=== PATIENT | female | born 1985 | race Caucasian/White ===

== ENCOUNTER → 2016-05-15 | Outpatient (CLI) | payer MEDICAID ==
--- NOTE | 2016-05-15 18:03 | MR ---
EXAMINATION TYPE: MR brain wo con DATE OF EXAM: 05/15/2016 5:31 PM COMPARISON: 04/27/2015 HISTORY: Hemangioma follow-up Multiplanar and multispin-echo imaging of the brain was performed . The ventricles, basal cisterns and sulci overlying the cerebral convexities are within normal limits. There is no evidence for midline shift or mass effect. Acute intracranial hemorrhage or extra-axial collection is not evident. The brain parenchyma reveals no abnormal increased signal. No acute edema is identified. The paranasal sinuses and mastoid air cells are well-aerated. Left frontal calvarium again demonstrates a stable hemangioma measuring 2.6 x 1.6 x 1.0 cm versus 2.6 x 1.6 x 1.0 cm previously. Again noted is some slight expansion. Thinning of the inner table of the cortex again seen. Overall no change identified. IMPRESSION: 1. Stable probable left frontal calvarial hemangioma. 2. No additional intracranial abnormality identified.
== END | disposition home or self-care (01) ==
LOC: RADMRIMAIN 16:45
PROVIDERS: ATTEND Nurse Practitioner Adult Health
DX: D18.00 Hemangioma unspecified site (principal)
CPT/HCPCS: 70551

== ENCOUNTER → 2017-05-07 | Outpatient (CLI) | payer MEDICAID ==
--- NOTE | 2017-05-07 21:44 | MR ---
EXAMINATION TYPE: MR brain wo con DATE OF EXAM: 05/07/2017 COMPARISON: 05/15/2016, 04/27/2015 and 05/07/2014. HISTORY: Follow up from previous MRI TECHNIQUE: Multiplanar, multisequence images of the brain and brainstem is performed without intravenous contras t. FINDINGS: Diffusion weighted images demonstrate no evidence of a recent infarct or other diffusion ab normality. There is no extra-axial fluid collection or significant white matter signal abnormality. The ventricular system and cisternal spaces are normal in size and appearance. The brain volume is age appropriate. Major intracranial flow voids are maintained in the left vertebral artery is dominan t. Midline structures demonstrate normal morphology. The craniocervical junction appears within normal limits. Post contrast images demonstrate no abnormal enhancement. The dural venous sinuses appear pa tent. A 1.5 cm left maxillary mucosal retention cyst is seen. The remaining visualized sinuses are cl ear and the globes are intact. Expanding the diploic space within the left frontal bone there is a T1 hyperintense and T2 hyperinten se lesion measuring 2.6 x 1.6 x 1.0, unchanged from the prior where this also measured 2.6 x 1.6 x 1. 0. No adjacent dural reaction. Minimal thickening in the inner table is redemonstrated and unchanged from the priors. IMPRESSION: Stable left lesion within the left diploic space unchanged in dimensions dating back to favored to represent a benign hemangioma. No new findings.
== END | disposition home or self-care (01) ==
LOC: RADMRIMAIN 19:09
PROVIDERS: ATTEND Family Medicine
DX: G93.9 Disorder of brain, unspecified (principal)
CPT/HCPCS: 70551

== ENCOUNTER → 2018-04-09 | Outpatient (CLI) | payer MEDICAID ==
--- NOTE | 2018-04-09 11:28 | CT ---
EXAMINATION TYPE: CT abdomen pelvis wo con DATE OF EXAM: 04/09/2018 COMPARISON: 11/22/2015 HISTORY: Abdominal pain and pelvic pain. History of hysterectomy and cholecystectomy. CT DLP: 578 mGycm Automated exposure control for dose reduction was used. TECHNIQUE: Helical acquisition of images was performed from the lung bases through the pelvis. FINDINGS: Evaluation of the hollow and solid viscera are limited without contrast. LUNG BASES: No significant abnormality is appreciated. LIVER/GB: Gallbladder surgically absent. Unenhanced liver is of unremarkable morphology. PANCREAS: No ductal dilatation is evident. SPLEEN: No significant abnormality is seen. ADRENALS: No nodularity or thickening. KIDNEYS: No nephrolithiasis or hydronephrosis. Left extrarenal pelvis is incidentally noted. FREE AIR: No free air is visualized ADENOPATHY: No greater than 1 cm short axis lymph node is seen given the limitation of the lack of i ntravenous contrast. REPRODUCTIVE ORGANS: Suboptimally evaluated on CT. There is surgical absence of the uterus. Vaginal c uff prominence is noted. There appears to be follicular and/or cystic changes of the ovaries, right g reater than left. Right ovary measures up to 4.5 cm in craniocaudal dimension. URINARY BLADDER: Incompletely distended. OSSEOUS STRUCTURES: Punctate nonspecific right pubic bone possible bone island is present. This is u nchanged from 2016. BOWEL: There is pancolonic bowel wall thickening most pronounced of the transverse colon such as on series 3 image 38 with mild pericolonic fat stranding. Few surrounding prominent mesenteric lymph nod es are seen that are not greater than 1 cm. Appendix appears within normal limits of size and retroce leonardo. No dilated large or small bowel. Evaluation for abscess is limited without contrast however no g ross evidence of pericolonic fluid collection is seen. IMPRESSION: 1. MILD ACUTE PANCOLITIS WITHOUT OBSTRUCTIVE PROCESS. COLITIS MAY BE OF INFECTIOUS OR INFLAMMATORY ET IOLOGY. GIVEN THE DIFFUSE INVOLVEMENT C. DIFFICILE COULD BE CONSIDERED. FEW NONENLARGED BUT PROMINENT LIKELY REACTIVE LYMPH NODES ARE SCATTERED THROUGHOUT THE MESENTERY. 2. PROMINENCE OF THE VAGINAL CUFF MAY BE POSTSURGICAL BUT SHOULD BE CORRELATED WITH PHYSICAL EXAM. AD DITIONALLY FOLLICULAR CHANGES AND/OR CYSTIC CHANGES ARE SEEN OF THE OVARIES, RIGHT GREATER THAN LEFT FOR WHICH PELVIC ULTRASOUND IS RECOMMENDED FOR BETTER CHARACTERIZATION.
== END | disposition home or self-care (01) ==
LOC: RADCTMAIN 10:52
PROVIDERS: ATTEND Nurse Practitioner Adult Health
DX: K52.9 Noninfective gastroenteritis and colitis, unspecified (principal); N83.202 Unspecified ovarian cyst, left side; N83.201 Unspecified ovarian cyst, right side
CPT/HCPCS: 74176

== ENCOUNTER → 2018-06-27 | Outpatient (CLI) | payer MEDICAID ==
--- NOTE | 2018-06-27 13:22 | MR ---
EXAMINATION TYPE: MR brain wo con DATE OF EXAM: 06/27/2018 1:15 PM COMPARISON: 05/07/2017 HISTORY: Benign neoplasm of brain, unspecified Multiplanar and multispin-echo imaging of the brain was performed . The ventricles, basal cisterns and sulci overlying the cerebral convexities are within normal limits. There is no evidence for midline shift or mass effect. Acute intracranial hemorrhage or extra-axial collection is not evident. The brain parenchyma reveals no abnormal increased signal. No acute edema is identified. Again noted within the diploic space of the left frontal bone there is a lesion that T1 hyperintensit y and T2 hyperintensity as well which measures approximately 2.6 x 1.3 x 4.0 cm versus 2.6 x 1.6 x 1. 0 cm previously. This is felt to reflect benign hemangioma. The paranasal sinuses and mastoid air cells are well-aerated. IMPRESSION: 1. Stable probable hemangioma of the left frontal bone diploic space.
== END | disposition home or self-care (01) ==
LOC: RADMRIMAIN 12:40
PROVIDERS: ATTEND Family Medicine
DX: D33.2 Benign neoplasm of brain, unspecified (principal)
CPT/HCPCS: 70551

== ENCOUNTER → 2018-07-16 | Outpatient (CLI) | payer MEDICAID ==
--- NOTE | 2018-07-16 08:21 | MM ---
Reason for exam: clinical finding. History: Family history of breast cancer in paternal aunt at age 18. US discontinued breast bx LT of the left breast, August 03, 2015. Took hormonal contraceptives for 7 years beginning at age 16. Physical Findings: Nurse Summary: 1cm nodule in the left breast at 9 o'clock (nurse darin). MG 3D Diag Mammo W/Cad ARIEL Bilateral CC and MLO view(s) were taken. The breast tissue is heterogeneously dense. This may lower the sensitivity of mammography. No suspicious calcifications are seen. There is no discrete abnormality including area of concern. These results were verbally communicated with the patient and result sheet given to the patient on 07/16/18. ASSESSMENT: Incomplete: need additional imaging evaluation, BI-RAD 0 RECOMMENDATION: Ultrasound of the left breast.
--- NOTE | 2018-07-16 08:22 | USB ---
Reason for exam: additional evaluation requested from abnormal screening. History: Family history of breast cancer in paternal aunt at age 18. US discontinued breast bx LT of the left breast, August 03, 2015. Took hormonal contraceptives for 7 years beginning at age 16. US Breast Limited LT Left limited breast ultrasound including focal area of concern, retroareolar and axilla demonstrates a 1.7 x 1.2 x 0.5cm hyperechoic lesion at 7 o'clock, lipoma versus dense tissue. These results were verbally communicated with the patient and result sheet given to the patient on 07/16/18. ASSESSMENT: Benign, BI-RAD 2 RECOMMENDATION: Ultrasound of the left breast in 6 months. Manage patient on a clinical basis.
== END ==
LOC: RADMAMWWP 06:59
PROVIDERS: ATTEND Family Medicine
DX: N63.10 Unspecified lump in the right breast, unspecified quadrant (principal); N63.20 Unspecified lump in the left breast, unspecified quadrant; R92.8 Other abnormal and inconclusive findings on diagnostic imaging of breast
CPT/HCPCS: 77062; 77066

== ENCOUNTER → 2018-10-09 | Outpatient (CLI) | payer MEDICAID ==
--- NOTE | 2018-10-09 14:50 | CT ---
EXAMINATION TYPE: CT brain wo con DATE OF EXAM: 10/09/2018 COMPARISON: CT brain May 10, 2014 HISTORY: Pre-surgical for hemangioma. Prior abnormal CT. CT DLP: 980.6 mGycm. Automated Exposure Control for Dose Reduction was Utilized. TECHNIQUE: CT scan of the head is performed without contrast. FINDINGS: There is no acute intracranial hemorrhage, mass effect, or midline shift identified. The ventricles and sulci are within normal limits in size. The globes are intact and the visualized sin uses are clear. Stable 2.2 cm left frontal osseous lesion axial image 30 could reflect a hemangioma o r enchondroma, benign nonaggressive etiology strongly favored given greater than four-year stability. IMPRESSION: No acute intracranial hemorrhage or midline shift is seen.
== END | disposition home or self-care (01) ==
LOC: RADCTMAIN 14:30
PROVIDERS: ATTEND Specialist
DX: D18.09 Hemangioma of other sites (principal)
CPT/HCPCS: 70450

== ENCOUNTER → 2018-10-17 | Outpatient (CLI) | payer MEDICAID ==
--- NOTE | 2018-10-17 09:25 | MR ---
EXAMINATION TYPE: MR brain wo/w con DATE OF EXAM: 10/17/2018 COMPARISON: CT brain 10/09/2018, MRI brain 06/27/2018, MRI brain 05/15/2016 HISTORY: Hemangioma of other sites, Headache syndrome TECHNIQUE: Multiplanar, multisequence images of the brain and brainstem is performed without and with IV contras t, utilizing 6 mL intravenous Gadavist . FINDINGS: Diffusion weighted images demonstrate no evidence of a recent infarct or other diffusion ab normality. There is no extra-axial fluid collection or significant white matter signal abnormality. The ventricular system and cisternal spaces are normal in size and appearance. The brain volume is age appropriate. Changes of chronic sinusitis noted. Midline structures demonstrate normal morphology. The craniocervical junction appears within normal limits. Post contrast images demonstrate no abnormal enhancement. The dural venous sinuses appear pa tent. Left frontal calvarium again demonstrates a stable hemangioma measuring 2.6 x 1.6 x 1.0 cm versus 2.6 x 1.6 x 1.0 cm previously. Again noted is some slight expansion. Thinning of the inner table of the cortex again seen. Overall no change identified. IMPRESSION: 1. Stable left frontal calvarial lesion unchanged from prior exam. 2. No acute intracranial abnormality.
== END | disposition home or self-care (01) ==
LOC: RADMRIMAIN 07:46
PROVIDERS: ATTEND Specialist
DX: G93.89 Other specified disorders of brain (principal); G44.89 Other headache syndrome
CPT/HCPCS: 70553; A9585

== ENCOUNTER → 2018-11-27 | Outpatient (CLI) | payer MEDICAID ==
--- NOTE | 2018-11-27 14:02 | CT ---
EXAMINATION TYPE: CT brain wo con DATE OF EXAM: 11/27/2018 COMPARISON: 10/09/2018 HISTORY: Follow up for surgery from craniotomy with cranioplasty for hemangioma. CT DLP: 1051.4 mGycm. Automated Exposure Control for Dose Reduction was Utilized. TECHNIQUE: CT scan of the head is performed without contrast. FINDINGS: There is no acute intracranial hemorrhage, mass effect, or midline shift identified. The ventricles and sulci are within normal limits in size. The globes are intact and the visualized sin uses are clear. Postsurgical change involving the left frontal bone. No intraosseous new lesions are seen. IMPRESSION: 1. Postsurgical change 2. No acute intracranial hemorrhage, mass effect, or midline shift is seen.
== END | disposition home or self-care (01) ==
LOC: RADCTMAIN 13:14
PROVIDERS: ATTEND Specialist
DX: D18.09 Hemangioma of other sites (principal); Z98.890 Other specified postprocedural states
CPT/HCPCS: 70450

== ENCOUNTER 2020-04-28 14:49 | Emergency (ER) | payer OTHER ==
[2020-04-28 15:27] VITALS: RESP 18
[2020-04-28] MEDS ORDERED: SODIUM CHLORIDE 0.9% 1,000 ML IV STA (15:41)
[2020-04-28] MEDS ORDERED: ONDANSETRON 4 MG/2 ML VIAL IVP STA (15:41)
--- NOTE | 2020-04-28 15:44 | ED ---
General Adult HPI - General Chief complaint: Abdominal Pain Stated complaint: possible kidney infection Time Seen by Provider: 04/28/20 15:29 Source: patient, RN notes reviewed Mode of arrival: ambulatory Limitations: no limitations - History of Present Illness Initial comments: Patient is a 35 she'll female that presents to emergency department complaining of left-sided flank pain with some minimal abdominal pain. She notes that she did go to the urgent care with a center here due to ketones in her urine. They did inform her that she was dehydrated based off of the limited labs. She notes that the flank pain comes and goes in intensity it is currently a 4 out of 10. She denied wanting any pain medication. She also she does have a history of UTIs but not kidney stones. She was mildly nauseous all day. She stated all started after taking 2 g of Valtrex given to her by primary care. She noted that after taking the Valtrex and felt like someone was squeezing both of her kidneys. She denied any chest pain shortness of breath vomiting diarrhea constipation fever fatigue chills dysuria. - Related Data Home Medications Medication Instructions Recorded Confirmed Cholecalciferol [Vitamin D3 (25 125 mcg PO Q14D 04/28/20 04/28/20 Mcg = 1000 Iu)] traZODone HCL 50 mg PO HS 04/28/20 04/28/20 Allergies Allergy/AdvReac Type Severity Reaction Status Date / Time No Known Allergies Allergy Verified 04/28/20 17:02 Review of Systems ROS Statement: Those systems with pertinent positive or pertinent negative responses have been documented in the HPI. ROS Other: All systems not noted in ROS Statement are negative. Past Medical History Past Medical History: GERD/Reflux Additional Past Medical History / Comment(s): insomnia-TAKES XANAX,UTI'S, MIGRAINES, VARICOSE VEIN"ONE POPPED FEW DAYS AGO", VERTIGO AT TIMES, BRAIN TUMOR FOUND 2014-DR WATCHING, FOUND SPOTS ON UTERUS-HAS APPT 11-23-15, SOLID MASS LT BREAST HAS APPT 12-01-15, LT OVARY HAS COMPLEX CYST,PT STATED THAT EVER SINCE SHE HAD GALLBLADDER REMOVED HER STOOLS ARE NEVER FORMED. ON HER DAYS OFF FROM WORK SHE'LL HAVE 6-10 STOOLS PER DAY ,ON DAYS SHE WORKS 3-4 STOOLS PER DAY. History of Any Multi-Drug Resistant Organisms: None Reported Past Surgical History: Cholecystectomy Additional Past Surgical History / Comment(s): ovarian cyst removed, crainiotomy and crainectomy, and metal/mesh plate and 8 screws Past Anesthesia/Blood Transfusion Reactions: No Reported Reaction Past Psychological History: No Psychological Hx Reported Smoking Status: Never smoker Past Alcohol Use History: Occasional Past Drug Use History: None Reported - Past Family History Father Family Medical History: Hypertension Additional Family Medical History / Comment(s): ANXIETY, PANIC DISORDER Mother History Unknown: Yes Sister(s) Family Medical History: Renal Disease Additional Family Medical History / Comment(s): 2 SISTERS HAD HYDRONEPHROSIS AND 3RD SISTER HAD A TUMOR OM HER ADRENAL GLAND AND CERVIAL CANCER. General Exam Limitations: no limitations General appearance: alert, in no apparent distress Head exam: Present: atraumatic, normocephalic, normal inspection Eye exam: Present: normal appearance, PERRL, EOMI. Absent: scleral icterus, conjunctival injection, periorbital swelling ENT exam: Present: normal exam, mucous membranes moist Neck exam: Present: normal inspection. Absent: tenderness, meningismus, lymphadenopathy Respiratory exam: Present: normal lung sounds bilaterally. Absent: respiratory distress, wheezes, rales, rhonchi, stridor Cardiovascular Exam: Present: regular rate, normal rhythm, normal heart sounds. Absent: systolic murmur, diastolic murmur, rubs, gallop, clicks GI/Abdominal exam: Present: soft, normal bowel sounds. Absent: distended, ten derness, guarding, rebound, rigid Extremities exam: Present: normal inspection, full ROM, normal capillary refill. Absent: tenderness, pedal edema, joint swelling, calf tenderness Back exam: Present: normal inspection, CVA tenderness (L) Neurological exam: Present: alert, oriented X3, CN II-XII intact Psychiatric exam: Present: normal affect, normal mood Skin exam: Present: warm, dry, intact, normal color. Absent: rash Course Vital Signs 04/28/20 15:20 Temperature 98.7 F Pulse Rate 60 Respiratory 18 Rate Blood Pressure 138/84 O2 Sat by Pulse 100 Oximetry Medical Decision Making - Medical Decision Making 35-year-old female complaining of left flank pain with some minimal abdominal pain. Labs, 1 L normal saline, CT of the abdomen and pelvis, 4 mg of Zofran ordered. Labs unremarkable, +[address] of the abdomen and pelvis unremarkable for any acute process or findings. Case discussed with Dr. Moreno, patient to discharge home. - Lab Data Result diagrams: 04/28/20 16:13 04/28/20 16:13 Lab Results 04/28/20 04/28/20 04/28/20 Range/Units 16:13 16:13 16:13 WBC 5.5 (3.8-10.6) k/uL RBC 4.14 (3.80-5.40) m/uL Hgb 12.9 (11.4-16.0) gm/dL Hct 38.7 (34.0-46.0) % MCV 93.5 (80.0-100.0) fL MCH 31.2 (25.0-35.0) pg MCHC 33.4 (31.0-37.0) g/dL RDW 13.3 (11.5-15.5) % Plt Count 170 (150-450) k/uL MPV 9.1 Neutrophils % 60 % Lymphocytes % 30 % Monocytes % 6 % Eosinophils % 2 % Basophils % 0 % Neutrophils # 3.3 (1.3-7.7) k/uL Lymphocytes # 1.7 (1.0-4.8) k/uL Monocytes # 0.3 (0-1.0) k/uL Eosinophils # 0.1 (0-0.7) k/uL Basophils # 0.0 (0-0.2) k/uL Sodium (137-145) mmol/L Potassium (3.5-5.1) mmol/L Chloride (98-107) mmol/L Carbon Dioxide (22-30) mmol/L Anion Gap mmol/L BUN (7-17) mg/dL Creatinine (0.52-1.04) mg/dL Est GFR (CKD-EPI)AfAm (>60 ml/min/1.73 sqM) Est GFR (CKD-EPI)NonAf (>60 ml/min/1.73 sqM) Glucose (74-99) mg/dL Calcium (8.4-10.2) mg/dL Total Bilirubin (0.2-1.3) mg/dL AST (14-36) U/L ALT (4-34) U/L Alkaline Phosphatase (38-126) U/L Total Protein (6.3-8.2) g/dL Albumin (3.5-5.0) g/dL Amylase (30-110) U/L Lipase (23-300) U/L Urine Color Light Yellow Urine Appearance Clear (Clear) Urine pH 6.0 (5.0-8.0) Ur Specific [place] 1.008 (1.001-1.035) Urine Protein Negative (Negative) Urine Glucose (UA) Negative (Negative) Urine Ketones 1+ H (Negative) Urine Blood Negative (Negative) Urine Nitrite Negative (Negative) Urine Bilirubin Negative (Negative) Urine Urobilinogen <2.0 (<2.0) mg/dL Ur Leukocyte Esterase Negative (Negative) Urine HCG, Qual Not Detected (Not Detectd) 04/28/20 Range/Units 16:13 WBC (3.8-10.6) k/uL RBC (3.80-5.40) m/uL Hgb (11.4-16.0) gm/dL Hct (34.0-46.0) % MCV (80.0-100.0) fL MCH (25.0-35.0) pg MCHC (31.0-37.0) g/dL RDW (11.5-15.5) % Plt Count (150-450) k/uL MPV Neutrophils % % Lymphocytes % % Monocytes % % Eosinophils % % Basophils % % Neutrophils # (1.3-7.7) k/uL Lymphocytes # (1.0-4.8) k/uL Monocytes # (0-1.0) k/uL Eosinophils # (0-0.7) k/uL Basophils # (0-0.2) k/uL Sodium 139 (137-145) mmol/L Potassium 3.9 (3.5-5.1) mmol/L Chloride 106 (98-107) mmol/L Carbon Dioxide 24 (22-30) mmol/L Anion Gap 9 mmol/L BUN 11 (7-17) mg/dL Creatinine 0.59 (0.52-1.04) mg/dL Est GFR (CKD-EPI)AfAm >90 (>60 ml/min/1.73 sqM) Est GFR (CKD-EPI)NonAf >90 (>60 ml/min/1.73 sqM) Glucose 85 (74-99) mg/dL Calcium 9.9 (8.4-10.2) mg/dL Total Bilirubin 0.8 (0.2-1.3) mg/dL AST 24 (14-36) U/L ALT 17 (4-34) U/L Alkaline Phosphatase 38 (38-126) U/L Total Protein 7.3 (6.3-8.2) g/dL Albumin 4.7 (3.5-5.0) g/dL Amylase 34 (30-110) U/L Lipase 74 (23-300) U/L Urine Color Urine Appearance (Clear) Urine pH (5.0-8.0) Ur Specific [place] (1.001-1.035) Urine Protein (Negative) Urine Glucose (UA) (Negative) Urine Ketones (Negative) Urine Blood (Negative) Urine Nitrite (Negative) Urine Bilirubin (Negative) Urine Urobilinogen (<2.0) mg/dL Ur Leukocyte Esterase (Negative) Urine HCG, Qual (Not Detectd) - Radiology Data Radiology results: report reviewed, image reviewed CT of the abdomen and pelvis: No bowel obstruction. Cannot exclude mild uncomplicated enteritis at the level terminal ileum otherwise no new or acute findings evident. Disposition Clinical Impression: Abdominal pain, Flank pain Disposition: HOME SELF-CARE Condition: Stable Instructions (If sedation given, give patient instructions): Abdominal Pain (ED), Flank Pain (ED) Additional Instructions: Please return to the Emergency Department if symptoms worsen or any other concerns. Follow-up with primary care in 2-5 days. Keep note of any triggers or events that can cause the pain despite. Take [id number] anti-inflammatories as needed for pain management. Increase oral fluid intake to remain hydrated. Is patient prescribed a controlled substance at d/c from ED?: No Referrals: Tristen Contreras MD [Primary Care Provider] - 1-2 days Time of Disposition: 18:44
[2020-04-28 16:31] LABS: Appearance,Urine Clear (Clear); Basophils % (A) 0 %; Bilirubin,Urine Negative (Negative); Blood,Urine Negative (Negative); Color,Urine Light Yellow; Eosinophils # (A) 0.1 k/uL (0-0.7); Eosinophils % (A) 2 %; Glucose,Urine (UA) Negative (Negative); HCT 38.7 % (34.0-46.0); HGB 12.9 gm/dL (11.4-16.0); Ketones,Urine 1+ (Negative); Leukocyte Esterase,Urine Negative (Negative); Lymphocytes # (A) 1.7 k/uL (1.0-4.8); Lymphocytes % (A) 30 %; MCH 31.2 pg (25.0-35.0); MCHC 33.4 g/dL (31.0-37.0); MCV 93.5 fL (80.0-100.0); Mean Platelet Volume 9.1; Monocytes # (A) 0.3 k/uL (0-1.0); Monocytes % (A) 6 %; Neutrophils # (A) 3.3 k/uL (1.3-7.7); Neutrophils % (A) 60 %; Nitrite,Urine Negative (Negative); Platelet Count 170 k/uL (150-450); Protein,Urine Negative (Negative); RBC 4.14 m/uL (3.80-5.40); RDW 13.3 % (11.5-15.5); Specific Gravity,Urine 1.008 (1.001-1.035); Urobilinogen,Urine <2.0 mg/dL (<2.0); WBC 5.5 k/uL (3.8-10.6)
[2020-04-28 16:44] LABS: ALT 17 U/L (4-34); AST 24 U/L (14-36); African American GFR (CKD) >90 (>60 ml/min/1.73 sqM); Albumin 4.7 g/dL (3.5-5.0); Alkaline Phosphatase 38 U/L (38-126); Amylase 34 U/L (30-110); Anion Gap 9 mmol/L; Blood Urea Nitrogen 11 mg/dL (7-17); Calcium 9.9 mg/dL (8.4-10.2); Carbon Dioxide 24 mmol/L (22-30); Chloride 106 mmol/L (98-107); Glucose 85 mg/dL (74-99); Lipase 74 U/L (23-300); Non-African American GFR(CKD) >90 (>60 ml/min/1.73 sqM); Potassium 3.9 mmol/L (3.5-5.1); Sodium 139 mmol/L (137-145); Total Bilirubin 0.8 mg/dL (0.2-1.3); Total Protein 7.3 g/dL (6.3-8.2)
--- NOTE | 2020-04-28 18:23 | CT ---
EXAMINATION TYPE: CT abdomen pelvis w con DATE OF EXAM: 04/28/2020 HISTORY: Abdominal and back pain. CT DLP: 575.5mGycm Automated Exposure Control for Dose Reduction was Utilized. CONTRAST: CT scan of the abdomen and pelvis is performed without oral but with IV Contrast, patient injected wi th 100 mL of Isovue 300. COMPARISON: CT April 09, 2018 FINDINGS: LUNG BASES: No significant abnormality is appreciated. LIVER/GB: Cholecystectomy clips are redemonstrated. PANCREAS: No significant abnormality is seen. SPLEEN: No significant abnormality is seen. ADRENALS: No significant abnormality is seen. KIDNEYS: No significant abnormality is seen. BOWEL: Suboptimal evaluation of bowel without enteric contrast and patient having little intra-abdomi nal fat. Which is smaller large bowel dilatation. Some sigmoid colonic diverticula without CT evidenc e for acute diverticulitis. Appendix within normal limits from cecum in the right pelvis. Mild wall t hickening in terminal ileum is present. Nonspecific. UTERUS/ADNEXA: Lobulated contour to the lower uterine segment or vaginal cuff with adjacent phlebolit hs. No significant change from prior. LYMPH NODES: No greater than 1cm abdominal or pelvic lymph nodes are appreciated. OSSEOUS STRUCTURES: No significant abnormality is seen. OTHER: No significant additional abnormality is seen. IMPRESSION: No bowel obstruction. Cannot exclude mild uncomplicated enteritis at level of terminal il eum otherwise no new or acute findings evident.
[2020-04-28 19:06] VITALS: BP 117/74; PULSE 54; TEMP 98.3
== END 2020-04-28 19:08 | disposition home or self-care (01) ==
LOC: EC 14:49
DX: R10.9 Unspecified abdominal pain (principal); K21.9 Gastro-esophageal reflux disease without esophagitis; Z79.899 Other long term (current) drug therapy
CPT/HCPCS: 36415; 80053; 82150; 83690; 85025; 81003; 81025; 74177; 99284; 96374; 96361; J2405; Q9967

== ENCOUNTER → 2020-05-25 | Outpatient (CLI) | payer OTHER ==
--- NOTE | 2020-05-25 12:03 | MM ---
Reason for exam: clinical finding. Last mammogram was performed 1 year and 10 months ago. History: Family history of breast cancer in paternal aunt at age 18. US discontinued breast bx LT of the left breast, August 03, 2015. Took hormonal contraceptives for 7 years beginning at age 16. Physical Findings: Nurse did not find any significant physical abnormalities on exam. MG 3D Diag Mammo W/Cad ARIEL Bilateral CC and MLO view(s) were taken. Prior study comparison: July 16, 2018, bilateral MG 3d diag mammo w/cad ARIEL. The breast tissue is extremely dense which could obscure a lesion on mammography. There is chronic nodularity bilaterally. There is no dominant lesion. No significant new findings when compared with previous films. These results were verbally communicated with the patient and result sheet given to the patient on 05/25/20. ASSESSMENT: Incomplete: need additional imaging evaluation, BI-RAD 0 RECOMMENDATION: Ultrasound of the left breast. Manage patient on a clinical basis.
--- NOTE | 2020-05-25 12:06 | USB ---
Reason for exam: additional evaluation requested from abnormal screening. History: Family history of breast cancer in paternal aunt at age 18. US discontinued breast bx LT of the left breast, August 03, 2015. Took hormonal contraceptives for 7 years beginning at age 16. US Breast Limited LT Left limited breast ultrasound including focal area of concern, retroareolar and axilla demonstrates a 0.5 x 0.5 x 0.3cm oval, cystic lesion at 8 o'clock and a 0.6 x 0.4 x 0.5cm oval, hypoechoic lesion at 8 o'clock for which a biopsy is recommended. These results were verbally communicated with the patient and result sheet given to the patient on 05/25/20. ASSESSMENT: Suspicious, BI-RAD 4 RECOMMENDATION: Ultrasound core biopsy of the left breast. Called office with mammographic findings and has scheduled an appointment for the patient for 06/09/20 at 10:[address] Contreras. Biopsy scheduled for 06/02/20 at 10:30. PRELIMINARY REPORT CALLED AND FAXED TO DR. CONTRERAS ON 05/25/20.
== END | disposition home or self-care (01) ==
LOC: RADMAMWWP 07:51
PROVIDERS: ATTEND Family Medicine
DX: R92.8 Other abnormal and inconclusive findings on diagnostic imaging of breast (principal)
CPT/HCPCS: 77062; 77066

== ENCOUNTER → 2020-06-02 | Day surgery (SDC) | payer OTHER ==
[2020-06-02 09:55] VITALS: RESP 16
[2020-06-02 11:53] VITALS: BP 115/72; PULSE 61
[2020-06-02 11:54] VITALS: TEMP 98.2
--- NOTE | 2020-06-02 12:48 | MM ---
EXAMINATION TYPE: US biopsy breast VAD LT DATE OF EXAM: 06/02/2020 CLINICAL HISTORY: N63 Lump/Mass. TECHNIQUE: Ultrasound guided vaccuum assisted core biopsy of left breast. COMPARISON: 05/25/2020 FINDINGS: The ultrasound guided core biopsy procedure was explained to the patient. The risks, benef its, alternatives were discussed. An informed consent was then obtained. Timeout was performed. The patient was placed in supine positioning for imaging and for the procedure. The overlying skin w as prepped with betadine and sterilely draped in usual sterile fashion. Lidocaine 1% was used as ane sthetic into the skin and deeper breast tissue up to area of concern in the breast. A small skin magdy k was made with surgical scalpel. Under ultrasound guidance, a 12-gauge vacuum assisted biopsy device was used to obtain 5 core samples . Initial attempt of the mammotome below the lesion was unsuccessful as mammotome could not be advan hafsa far enough. Similar Celeros positioning was attempted, the throw was felt to be unsafe. Biopsy fr om the superior portion the lesion was performed. The lesion appeared to diminish in size over the bi opsy. A biopsy clip was left in lesion. Coil clip was placed. Good hemostasis was obtained with direct pressure. Discharge instructions were discussed with the lester quinones. The patient will follow up with the referring physician for results. Postprocedure mammogram: The patient was transferred to mammography for physician ordered post proced ure mammogram for clip placement verification. The clip is in the expected region of the biopsy. The patient tolerated the procedure well without any immediate complication. The patient was dischar ged to home in stable condition. IMPRESSION: 1. Successful ultrasound guided biopsy left breast. Recommendations: 1. Recommendations are pending pathology results.
--- NOTE | 2020-06-02 12:49 | USB ---
EXAMINATION TYPE: US biopsy breast VAD LT DATE OF EXAM: 06/02/2020 CLINICAL HISTORY: N63 Lump/Mass. TECHNIQUE: Ultrasound guided vaccuum assisted core biopsy of left breast. COMPARISON: 05/25/2020 FINDINGS: The ultrasound guided core biopsy procedure was explained to the patient. The risks, benefits, alternatives were discussed. An informed consent was then obtained. Timeout was performed. The patient was placed in supine positioning for imaging and for the procedure. The overlying skin was prepped with betadine and sterilely draped in usual sterile fashion. Lidocaine 1% was used as anesthetic into the skin and deeper breast tissue up to area of concern in the breast. A small skin chinyere was made with surgical scalpel. Under ultrasound guidance, a 12-gauge vacuum assisted biopsy device was used to obtain 5 core samples. Initial attempt of the mammotome below the lesion was unsuccessful as mammotome could not be advanced far enough. Similar Celeros positioning was attempted, the throw was felt to be unsafe. Biopsy from the superior portion the lesion was performed. The lesion appeared to diminish in size over the biopsy. A biopsy clip was left in lesion. Coil clip was placed. Good hemostasis was obtained with direct pressure. Discharge instructions were discussed with the patient. The patient will follow up with the referring physician for results. Postprocedure mammogram: The patient was transferred to mammography for physician ordered post procedure mammogram for clip placement verification. The clip is in the expected region of the biopsy. The patient tolerated the procedure well without any immediate complication. The patient was discharged to home in stable condition. IMPRESSION: 1. Successful ultrasound guided biopsy left breast. Recommendations: 1. Recommendations are pending pathology results. Pathology Results: Benign LEFT BREAST, ULTRASOUND GUIDED CORE BIOPSY: Fibrocystic changes including fibrosis and adenosis. Recommendation Follow up ultrasound of the left breast in 6 months. JOSE L
== END ==
LOC: RADPROWWP 09:35 → EDSTATUS 10:30
PROVIDERS: ATTEND Family Medicine
DX: N60.12 Diffuse cystic mastopathy of left breast (principal); N60.22 Fibroadenosis of left breast
CPT/HCPCS: 88305; 77065; 19083; A4648; J2001